=== PATIENT | male | born 1960 | race Caucasian/White ===

== ENCOUNTER 2022-10-08 11:02 | Emergency (ER) | payer BC ==
[2022-10-08 11:11] VITALS: BP 165/90; RESP 18; TEMP 98
[2022-10-08] MEDS ORDERED: SODIUM CHLORIDE 0.9% 500 ML 500 ML IV STA (11:29)
[2022-10-08 11:31] VITALS: PULSE 82
--- NOTE | 2022-10-08 11:35 | ED ---
General Adult HPI - General Chief complaint: Arrhythmia/Palpitations Stated complaint: fluttering in chest Time Seen by Provider: 10/08/22 11:22 Source: patient, family, RN notes reviewed, old records reviewed Mode of arrival: ambulatory Limitations: no limitations - History of Present Illness Initial comments: 62-year-old well-appearing male presents to the emergency room with complaints of palpitations or fluttering in his chest on and off for the past week. Patient states it happens at least once a day. Thought it may be related to his caffeine intake however he has stopped caffeine intake and continues to have palpitations at rest. He states he came in today because he was in spiritism and he felt the fluttering and his hands became sweaty. Denies any chest pain, cough or shortness of breath. No fevers or nausea vomiting or diarrhea. Patient does have a history of hypertension and does take metoprolol. -: week(s) (1) Location: chest Radiation: non-radiation Severity scale (1-10): 0 Associated Symptoms: other (sweaty palms today) Treatments Prior to Arrival: none - Related Data Allergies Allergy/AdvReac Type Severity Reaction Status Date / Time No Known Allergies Allergy Verified 10/08/22 11:11 Review of Systems ROS Statement: Those systems with pertinent positive or pertinent negative responses have been documented in the HPI. ROS Other: All systems not noted in ROS Statement are negative. Past Medical History Past Medical History: Hypertension History of Any Multi-Drug Resistant Organisms: None Reported Past Surgical History: No Surgical Hx Reported Past Psychological History: No Psychological Hx Reported Smoking Status: Never smoker Past Alcohol Use History: Occasional Past Drug Use History: None Reported General Exam Limitations: no limitations General appearance: alert, in no apparent distress Head exam: Present: atraumatic Eye exam: Absent: scleral icterus, conjunctival injection, periorbital swelling, periorbital tenderness Neck exam: Present: normal inspection, full ROM, other (No carotid bruit). Absent: tenderness, meningismus, lymphadenopathy Respiratory exam: Present: normal lung sounds bilaterally. Absent: respiratory distress, wheezes, rales, rhonchi, stridor, chest wall tenderness, accessory muscle use, decreased breath sounds Cardiovascular Exam: Present: regular rate GI/Abdominal exam: Present: soft. Absent: distended, tenderness, guarding, rigid Extremities exam: Present: normal inspection, full ROM, normal capillary refill. Absent: tenderness, pedal edema Back exam: Present: normal inspection. Absent: tenderness, rash noted Neurological exam: Present: alert, oriented X3 Psychiatric exam: Present: normal affect, normal mood Skin exam: Present: warm, dry, normal color. 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 No old EKG to compare Chest x-ray reviewed by me shows no areas of consolidation. Radiologist interpretation no acute cardiopulmonary process. CBC and electrolytes are unremarkable. Troponin negative at 0.012. Vital signs are stable. Patient has had no palpitations while in the emergency room. We did have a discussion regarding his caffeine intake which may be cause of palpitations. HEART score low. He was instructed to follow-up with his primary care doctor and cardiology for possible Holter monitor. Instructed to return to the emergency room with any new or concerning symptoms especially chest pain or difficulty in breathing. Pa marcus and family member are agreeable to this plan of care. Case was discussed with Dr. Mccormack - Lab Data Result diagrams: 10/08/22 11:38 10/08/22 12:25 Lab Results 10/08/22 10/08/22 10/08/22 Range/Units 11:38 11:56 12:25 WBC 8.7 (3.8-10.6) k/uL RBC 5.12 (4.30-5.90) m/uL Hgb 15.9 (13.0-17.5) gm/dL Hct 45.2 (39.0-53.0) % MCV 88.4 (80.0-100.0) fL MCH 31.0 (25.0-35.0) pg MCHC 35.1 (31.0-37.0) g/dL RDW 12.2 (11.5-15.5) % Plt Count 286 (150-450) k/uL MPV 7.6 Neutrophils % 79 % Lymphocytes % 12 % Monocytes % 6 % Eosinophils % 1 % Basophils % 0 % Neutrophils # 6.9 (1.3-7.7) k/uL Lymphocytes # 1.1 (1.0-4.8) k/uL Monocytes # 0.5 (0-1.0) k/uL Eosinophils # 0.1 (0-0.7) k/uL Basophils # 0.0 (0-0.2) k/uL PT 10.0 (9.0-12.0) sec INR 0.9 (<1.2) APTT 19.8 L (22.0-30.0) sec Sodium (137-145) mmol/L Potassium (3.5-5.1) mmol/L Chloride (98-107) mmol/L Carbon Dioxide (22-30) mmol/L Anion Gap mmol/L BUN (9-20) mg/dL Creatinine (0.66-1.25) mg/dL Est GFR (CKD-EPI)AfAm (>60 ml/min/1.73 sqM) Est GFR (CKD-EPI)NonAf (>60 ml/min/1.73 sqM) Glucose (74-99) mg/dL Calcium (8.4-10.2) mg/dL Magnesium (1.6-2.3) mg/dL Total Bilirubin (0.2-1.3) mg/dL AST (17-59) U/L ALT (4-49) U/L Alkaline Phosphatase (38-126) U/L Troponin I <0.012 (0.000-0.034) ng/mL Total Protein (6.3-8.2) g/dL Albumin (3.5-5.0) g/dL 10/08/22 Range/Units 12:25 WBC (3.8-10.6) k/uL RBC (4.30-5.90) m/uL Hgb (13.0-17.5) gm/dL Hct (39.0-53.0) % MCV (80.0-100.0) fL MCH (25.0-35.0) pg MCHC (31.0-37.0) g/dL RDW (11.5-15.5) % Plt Count (150-450) k/uL MPV Neutrophils % % Lymphocytes % % Monocytes % % Eosinophils % % Basophils % % Neutrophils # (1.3-7.7) k/uL Lymphocytes # (1.0-4.8) k/uL Monocytes # (0-1.0) k/uL Eosinophils # (0-0.7) k/uL Basophils # (0-0.2) k/uL PT (9.0-12.0) sec INR (<1.2) APTT (22.0-30.0) sec Sodium 140 (137-145) mmol/L Potassium 4.0 (3.5-5.1) mmol/L Chloride 111 H (98-107) mmol/L Carbon Dioxide 20 L (22-30) mmol/L Anion Gap 9 mmol/L BUN 11 (9-20) mg/dL Creatinine 0.79 (0.66-1.25) mg/dL Est GFR (CKD-EPI)AfAm >90 (>60 ml/min/1.73 sqM) Est GFR (CKD-EPI)NonAf >90 (>60 ml/min/1.73 sqM) Glucose 100 H (74-99) mg/dL Calcium 8.6 (8.4-10.2) mg/dL Magnesium 1.8 (1.6-2.3) mg/dL Total Bilirubin 0.8 (0.2-1.3) mg/dL AST 20 (17-59) U/L ALT 20 (4-49) U/L Alkaline Phosphatase 90 (38-126) U/L Troponin I (0.000-0.034) ng/mL Total Protein 7.1 (6.3-8.2) g/dL Albumin 4.3 (3.5-5.0) g/dL Disposition Clinical Impression: Palpitations Disposition: HOME SELF-CARE Condition: Good Instructions (If sedation given, give patient instructions): Heart Palpitations (ED) Additional Instructions: Please follow-up with your primary care doctor tomorrow. It may be necessary to have a playground monitor provided to monitor your heart rhythm. Return to the emergency room with any new or concerning symptoms. Is patient prescribed a controlled substance at d/c from ED?: No Referrals: David Bowie MD [Primary Care Provider] - 1-2 days Dakota Wallace MD [STAFF PHYSICIAN] - 1-2 days Time of Disposition: 13:00
[2022-10-08 11:47] LABS: Basophils % (A) 0 %; Eosinophils # (A) 0.1 k/uL (0-0.7); Eosinophils % (A) 1 %; HCT 45.2 % (39.0-53.0); HGB 15.9 gm/dL (13.0-17.5); Lymphocytes # (A) 1.1 k/uL (1.0-4.8); Lymphocytes % (A) 12 %; MCHC 35.1 g/dL (31.0-37.0); MCV 88.4 fL (80.0-100.0); Mean Platelet Volume 7.6; Monocytes # (A) 0.5 k/uL (0-1.0); Monocytes % (A) 6 %; Neutrophils # (A) 6.9 k/uL (1.3-7.7); Neutrophils % (A) 79 %; Platelet Count 286 k/uL (150-450); RBC 5.12 m/uL (4.30-5.90); RDW 12.2 % (11.5-15.5); WBC 8.7 k/uL (3.8-10.6)
--- NOTE | 2022-10-08 12:10 | XR ---
EXAMINATION TYPE: XR chest 2V DATE OF EXAM: 10/08/2022 COMPARISON: None HISTORY: 62-year-old male dysrhythmia, heart flutter TECHNIQUE: PA and lateral views FINDINGS: The cardiomediastinal silhouette, aorta, and pulmonary vasculature are within normal limits. Strandy atelectasis in the lower lungs. Otherwise, lungs and pleural spaces are clear. IMPRESSION: No acute cardiopulmonary process.
[2022-10-08 12:27] LABS: INR 0.9 (<1.2)
[2022-10-08 12:29] LABS: Partial Thromboplastin Time 19.8 sec (22.0-30.0)
[2022-10-08 12:44] LABS: ALT 20 U/L (4-49); AST 20 U/L (17-59); African American GFR (CKD) >90 (>60 ml/min/1.73 sqM); Albumin 4.3 g/dL (3.5-5.0); Alkaline Phosphatase 90 U/L (38-126); Anion Gap 9 mmol/L; Blood Urea Nitrogen 11 mg/dL (9-20); Calcium 8.6 mg/dL (8.4-10.2); Carbon Dioxide 20 mmol/L (22-30); Chloride 111 mmol/L (98-107); Glucose 100 mg/dL (74-99); Magnesium 1.8 mg/dL (1.6-2.3); Non-African American GFR(CKD) >90 (>60 ml/min/1.73 sqM); Sodium 140 mmol/L (137-145); Total Bilirubin 0.8 mg/dL (0.2-1.3); Total Protein 7.1 g/dL (6.3-8.2)
== END 2022-10-08 13:18 | disposition home or self-care (01) ==
LOC: EC 11:02
DX: R00.2 Palpitations (principal); I10 Essential (primary) hypertension
CPT/HCPCS: 36415; 71046; 80053; 83735; 84484; 85025; 85610; 85730; 93005; 96360; 99285

== ENCOUNTER → 2023-03-21 | Outpatient (CLI) | payer BC ==
--- NOTE | 2023-03-21 12:00 | CTL ---
EXAMINATION TYPE: CT Low Dose Lung DATE OF EXAM ORDERED: 03/21/2023 HISTORY: . Lung cancer screening CT DLP: mGycm CT CTD: mGy Automated exposure control for dose reduction was used. SCREENING VISIT: COMPARISON: None TECHNIQUE: Low dose computed tomography scan was performed through the chest at 1 mm thick sections a nd reconstructed images in multiple planes at 1 mm and [address] DIAGNOSTIC QUALITY: Satisfactory FINDINGS: There are subsegmental changes involving both lungs greater on the right most scarring or atelectasis . No focal pneumonia or pleural effusion. There is no pneumothorax. On axial image 162 there is a 3 mm nodule in the anterior segment of the right upper lobe. On axial image 179 2 mm nodule subpleural right upper lobe On axial image 187 there is a 2 mm nodule anterior segment right upper lobe On axial image 223 there is a nodule measuring 4 mm left lower lobe. On axial image 164 there is a 3 mm subpleural nodule right lower lobe. Heart size is normal. There is atherosclerotic change of the aorta. There is no evidence of significa nt coronary artery calcification. No pericardial effusion. Within the liver there is a 3.7 cm posterior segment right lobe liver lesion measuring 5 [place] u nits most likely basis, cyst IMPRESSION: 1. Multiple 5 mm less pulmonary nodules likely a benign basis. 2. Right hepatic lesion most likely on the basis of simple cysts consider follow-up ultrasound for co nfirmation. CT LUNG RAD AND CT CHEST RECOMMENDATION: Lung-Rad 2 Benign Appearance or Behavior: Continue annual sc reening with LDC in 12 months.
== END | disposition home or self-care (01) ==
LOC: RADCTMAIN 11:01
PROVIDERS: ATTEND Family Medicine
DX: Z12.2 Encounter for screening for malignant neoplasm of respiratory organs (principal); K76.9 Liver disease, unspecified; R91.8 Other nonspecific abnormal finding of lung field; Z87.891 Personal history of nicotine dependence
CPT/HCPCS: 71271

== ENCOUNTER → 2023-04-23 | Outpatient (CLI) | payer BC ==
--- NOTE | 2023-04-23 07:52 | US ---
EXAMINATION TYPE: US liver DATE OF EXAM: 04/23/2023 COMPARISON: CT low-dose lung cancer screening 03/21/2023 CLINICAL INDICATION: Male, 62 years old with history of Q44.6 CYSTIC DISEASE OF LIVER; cyst seen on C T TECHNIQUE: Multiple sonographic images of the right upper quadrant are obtained. FINDINGS: EXAM MEASUREMENTS: Liver Length: 17.0 cm Gallbladder Wall: 0.3 cm CBD: 0.6 cm Right Kidney: 11.4 x 5.7 x 5.8 cm Pancreas: wnl Liver: 2 cystic areas seen, largest 4.3 x 3.9 x 3.7cm in posterior right lobe Gallbladder: wnl Evidence for sonographic Aldana's sign: no CBD: wnl Right Kidney: wnl The visualized portions of the pancreas are unremarkable. There are 2 simple appearing cysts within t he liver with largest measuring up to 4.3 cm the right hepatic lobe. Gallbladder is unremarkable with out evidence of wall thickening, shadowing stones, or pericholecystic fluid. Per client relations specialist, negativ e sonographic Aldana sign. Common bile duct is within normal limits. The right kidney is unremarkable without evidence of hydronephrosis, shadowing calculi, or solid mass. IMPRESSION: 1. No acute process. 2. There are 2 simple appearing cysts within the liver with largest measuring up to 4.3 cm [address] to [address].
== END | disposition home or self-care (01) ==
LOC: RADUSWWP 06:50
PROVIDERS: ATTEND Family Medicine
DX: Q44.6 Cystic disease of liver (principal); K76.89 Other specified diseases of liver
CPT/HCPCS: 76705

== ENCOUNTER → 2024-03-21 | Outpatient (CLI) | payer MEDICARE, BC ==
--- NOTE | 2024-03-21 12:32 | CTL ---
EXAMINATION TYPE: CT Low Dose Lung DATE OF EXAM: 03/21/2024 9:43 AM CLINICAL INDICATION:Male, 63 years old with history of Z87.891 PERSONAL HX NICOTINE DEPENENCE; person al hx of nicotine dependence 1ppd X 30years not current smoker , history of tobacco use. COMPARISON: 03/21/2023. TECHNIQUE: Multiple axial non-contrast scans were obtained from approximately the lung apices through the upper abdomen. Coronal and sagittal reformatted images were obtained. Low dose technique was uti lized. CT DLP: 103 mGycm, Automated exposure control for dose reduction was used. CT Contrast: Contrast used: None Oral contrast used: None FINDINGS: ======== Lack of intravenous contrast and low dose technique limits the evaluation of the vascular and soft ti ssue structures. LUNGS: No evidence of pulmonary fibrosis. No evidence of focal consolidation, pneumothorax or pleural effusion. Nodules: RUL: None. RML: 3 mm series 9 image 33. RLL: None. FREDY: None. LLL: 3 mm series 9 image 44, 3 mm image 41 AIRWAY: Patent and unremarkable. HEART: Size within normal limits. MEDIASTINUM: No gross evidence of adenopathy. VASCULATURE: No aortic aneurysm. MUSCULOSKELETAL: No acute osseous abnormalities SOFT TISSUES/LYMPH NODES: Unremarkable. LOWER NECK: No significant findings. UPPER ABDOMEN: Right hepatic lobe cyst. IMPRESSION: 1. No clinically significant pulmonary nodules. 2. Mild emphysema. CT LUNG RAD AND CT CHEST RECOMMENDATION: Lung-Rad 2 Benign Appearance or Behavior: Continue annual sc reening with LDCT in 12 months. S Modifier (other clinically significant findings): None Recommend smoking cessation (if current smoker), or continuation of smoking cessation (if prior smoke r). Annual screening for lung cancer with low-dose computed tomography is recommended in adults ages 55 to 77 years who have a 30 pack-year smoking history and currently smoke or have quit within the pa st 15 years. Screening should be discontinued once a person has not smoked for 15 years or develops a health problem that substantially limits life expectancy or the ability or willingness to have curat taylor lung surgery. Lung rads 2021 [email or web address]
== END | disposition home or self-care (01) ==
LOC: RADCTMAIN 09:09
PROVIDERS: ATTEND Family Medicine
DX: Z12.2 Encounter for screening for malignant neoplasm of respiratory organs (principal); J43.9 Emphysema, unspecified; Z87.891 Personal history of nicotine dependence
CPT/HCPCS: 71271

== ENCOUNTER 2025-03-19 19:27 | Emergency (ER) | payer MEDICARE, BC ==
[2025-03-19 19:51] VITALS: RESP 18; TEMP 97.4
[2025-03-19 20:12] LABS: Basophils # (A) 0.04 10*3/uL (0.00-0.10); Basophils % (A) 0.5 %; Eosinophils % (A) 2.7 %; HCT 49.6 % (39.6-50.0); HGB 17.2 g/dL (13.0-17.0); Lymphocytes # (A) 0.78 10*3/uL (0.90-5.00); Lymphocytes % (A) 10.4 %; MCH 30.4 pg (27.0-32.0); MCHC 34.7 g/dL (32.0-37.0); MCV 87.8 fL (80.0-97.0); Mean Platelet Volume 8.8 fL (9.5-12.2); Monocytes # (A) 0.15 10*3/uL (0.20-1.00); Neutrophils # (A) 6.32 10*3/uL (1.80-7.70); Platelet Count 283 10*3/uL (140-440); RBC 5.65 10*6/uL (4.40-5.60); RDW 12.8 % (11.5-14.5); WBC 7.52 10*3/uL (4.50-10.00)
[2025-03-19 20:30] LABS: ALT 133 U/L (4-49); AST 214 U/L (17-59); African American GFR (CKD) 80 (>60 ml/min/1.73 sqM); Albumin 5.1 g/dL (3.5-5.0); Alkaline Phosphatase 111 U/L (38-126); Amylase 67 U/L (30-110); Anion Gap 15 mmol/L; Blood Urea Nitrogen 14 mg/dL (9-20); Calcium 10.4 mg/dL (8.4-10.2); Carbon Dioxide 25 mmol/L (22-30); Chloride 100 mmol/L (98-107); Glucose 125 mg/dL (74-99); Lipase 187 U/L (23-300); Non-African American GFR(CKD) 69 (>60 ml/min/1.73 sqM); Potassium 4.1 mmol/L (3.5-5.1); Sodium 140 mmol/L (137-145); Total Bilirubin 2.3 mg/dL (0.2-1.3); Total Protein 8.8 g/dL (6.3-8.2)
--- NOTE | 2025-03-19 20:58 | ED ---
General Adult HPI - General Source: patient, RN notes reviewed Mode of arrival: ambulatory Limitations: no limitations <Deysi Barton - Last Filed: 03/19/25 23:48> <Jamie Arciniega - Last Filed: 03/20/25 02:44> - General Chief complaint: Abdominal Pain Stated complaint: abd and back pain Time Seen by Provider: 03/19/25 20:44 - History of Present Illness Initial comments: 64-year-old male with history of hypertension, hyperlipidemia and acid reflux presents emergency department for complaints of center abdominal pain with radiation to his back. Patient states the pain started few hours prior to arrival that was extremely severe. On the drive to the emergency department patient became nauseous and had a few episodes of emesis. Currently he states that the pain has subsided and now is rated as a 2 to a 3 out of 10. He denies chest pain, difficulty breathing, heart palpitations, dysuria, hematuria, urinary frequency or urgency, fevers, chills. (Deysi Barton) - Related Data Allergies Allergy/AdvReac Type Severity Reaction Status Date / Time No Known Allergies Allergy Verified 03/19/25 19:48 Review of Systems ROS Other: All systems not noted in ROS Statement are negative. <Deysi Barton - Last Filed: 03/19/25 23:48> ROS Other: All systems not noted in ROS Statement are negative. <Jamie Arciniega - Last Filed: 03/20/25 02:44> ROS Statement: Those systems with pertinent positive or pertinent negative responses have been documented in the HPI. Past Medical History Past Medical History: Hypertension History of Any Multi-Drug Resistant Organisms: None Reported Past Surgical History: No Surgical Hx Reported Past Psychological History: No Psychological Hx Reported Smoking Status: Never smoker Past Alcohol Use History: Occasional Past Drug Use History: None Reported <Deysi Barton - Last Filed: 03/19/25 23:48> General Exam Limitations: no limitations General appearance: alert, in no apparent distress Neck exam: Present: normal inspection. Absent: tenderness, meningismus, lymphadenopathy Respiratory exam: Present: normal lung sounds bilaterally. Absent: respiratory distress, wheezes, rales, rhonchi, stridor Cardiovascular Exam: Present: regular rate, normal rhythm, normal heart sounds. Absent: systolic murmur, diastolic murmur, rubs, gallop, clicks GI/Abdominal exam: Present: soft, tenderness (mid abdomen), normal bowel sounds. Absent: distended, guarding, rebound, rigid Extremities exam: Present: normal inspection, full ROM, normal capillary refill. Absent: tenderness, pedal edema, joint swelling, calf tenderness Back exam: Present: normal inspection, tenderness (mid back). Absent: CVA tenderness (R), CVA tenderness (L) Neurological exam: Present: alert, oriented X3, CN II-XII intact <Deysi Barton - Last Filed: 03/19/25 23:48> Course Vital Signs 03/19/25 03/19/25 19:48 21:15 Temperature 97.4 F L Pulse Rate 95 105 H Respiratory 18 18 Rate Blood Pressure 150/91 O2 Sat by Pulse 95 96 Oximetry Medical Decision Making - Lab Data Result diagrams: 03/19/25 20:07 03/19/25 20:07 <Deysi Barton - Last Filed: 03/19/25 23:48> - Lab Data Result diagrams: 03/19/25 20:07 03/19/25 20:07 <Jamie Arciniega - Last Filed: 03/20/25 02:44> - Medical Decision Making Was pt. sent in by a medical professional or institution (Dr. PA, DESIGN ENGINEERING SPECIALIST, urgent care, hospital, or usp...) When possible be specific @ -[No] Did you speak to anyone other than the patient for history (EMS, parent, family, police, friend...)? What history was obtained from this source @ -[No] Did you review nursing and triage notes (agree or disagree)? Why? @ -[I reviewed and agree with nursing and triage notes] Were old charts reviewed (outside hosp., previous admission, EMS record, old EKG, old radiological studies, urgent care reports/EKG's, usp records)? Report findings @ -[No old charts were reviewed] Differential Diagnosis (chest pain, altered mental status, abdominal pain women, abdominal pain men, vaginal bleeding, weakness, fever, dyspnea, syncope, headache, dizziness, GI bleed, back pain, seizure, CVA, palpatations, mental health, musculoskeletal)? @ -Differential Abdominal Pain Men: Appendicitis, cholecystitis, diverticulosis, ischemic bowel, pancreatitis, hepatitis, UTI, gastroenteritis, AAA, incarcerated hernia, bowel obstruction, constipation, inflammatory bowel, hepatitis, peptic ulcer disease, splenic infarction, perforated viscus, testicular torsion, this is not meant to be an all-inclusive list EKG interpreted by me (3pts min.). @ -Completed at 2000 sinus rhythm with a noted first-degree AV block, ventricular rate 92, TX interval 217, QRS 104, QT 356, QTc 406. X-rays interpreted by me (1pt min.). @ -[None done] CT interpreted by me (1pt min.). @ -[None done] U/S interpreted by me (1pt. min.). @ -[None done] What testing was considered but not performed or refused? (CT, X-rays, U/S, labs)? Why? @ -[None] What meds were considered but not given or refused? Why? @ -[None] Did you discuss the management of the patient with other professionals (professionals i.e. , PA, DESIGN ENGINEERING SPECIALIST, lab, RT, psych nurse, social insurance adviser, childhood teacher, teacher, mortgage loan officer, returned case inspector)? Give summary @ -[No] Was smoking cessation discussed for >3mins.? @ -[No] Was critical care preformed (if so, how long)? @ -[No] Were there social determinants of health that impacted care today? How? (Homelessness, low income, unemployed, alcoholism, drug addiction, transportation, low edu. Level, literacy, decrease access to med. care, fpc, re hab)? @ -[No] Was there de-escalation of care discussed even if they declined (Discuss DNR or withdrawal of care, Hospice)? DNR status @ -[No] What co-morbidities impacted this encounter? (DM, HTN, Smoking, COPD, CAD, Cancer, CVA, ARF, Chemo, Hep., AIDS, mental health diagnosis, sleep apnea, morbid obesity)? @ -[None] Was patient admitted / discharged? Hospital course, mention meds given and route , prescriptions, significant lab abnormalities, going to OR and other pertinent info. @ -64-year-old male presents emergency room with complaints of abdominal pain with radiation to his back. Pain is mildly reproducible on examination. Patient dates that pain is improved since he has been in the emergency department currently rated as a 3 out of 10. He is offered morphine however was declined stating that he would like Tylenol instead as his pain is not as severe as it was. CBC is unremarkable. CMP reveals transaminitis with an AST of 214, ALT of 133. Elevated bilirubin of 2.3. Urinalysis no signs of infection. Undiagnosed new problem with uncertain prognosis? @ -[No] Drug Therapy requiring intensive monitoring for toxicity (Heparin, Nitro, Insulin, Cardizem)? @ -[No] Were any procedures done? @ -[No] Diagnosis/symptom? @ -[default] Acute, or Chronic, or Acute on Chronic? @ -[default] Uncomplicated (without systemic symptoms) or Complicated (systemic symptoms)? @ -[default] Side effects of treatment? @ -[No] Exacerbation, Progression, or Severe Exacerbation? @ -[No] Poses a threat to life or bodily function? How? (Chest pain, [place], [place], pneumonia, PE, COPD, DKA, ARF, appy, cholecystitis, CVA, Diverticulitis, Homicidal, Suicidal, threat to staff... and all critical care pts) @ -[No] (Deysi Barton) - Lab Data Lab Results 03/19/25 03/19/25 03/19/25 Range/Units 20:07 20:07 21:31 WBC 7.52 (4.50-10.00) 10*3/uL RBC 5.65 H (4.40-5.60) 10*6/uL Hgb 17.2 H (13.0-17.0) g/dL Hct 49.6 (39.6-50.0) % MCV 87.8 (80.0-97.0) fL MCH 30.4 (27.0-32.0) pg MCHC 34.7 (32.0-37.0) g/dL Plt Count 283 (140-440) 10*3/uL MPV 8.8 L (9.5-12.2) fL Immature Gran % (Auto) 0.4 % Neutrophils % 84.0 % Lymphocytes % 10.4 % Monocytes % 2.0 % Eosinophils % 2.7 % Basophils % 0.5 % Immature Gran # 0.03 (0.00-0.04) 10*3/uL Neutrophils # 6.32 (1.80-7.70) 10*3/uL Lymphocytes # 0.78 L (0.90-5.00) 10*3/uL Monocytes # 0.15 L (0.20-1.00) 10*3/uL Eosinophils # 0.20 (0.04-0.35) 10*3/uL Basophils # 0.04 (0.00-0.10) 10*3/uL Sodium 140 (137-145) mmol/L Potassium 4.1 (3.5-5.1) mmol/L Chloride 100 (98-107) mmol/L Carbon Dioxide 25 (22-30) mmol/L Anion Gap 15 mmol/L BUN 14 (9-20) mg/dL Creatinine 1.11 (0.66-1.25) mg/dL Est GFR (CKD-EPI)AfAm 80 (>60 ml/min/1.73 sqM) Est GFR (CKD-EPI)NonAf 69 (>60 ml/min/1.73 sqM) Glucose 125 H (74-99) mg/dL Calcium 10.4 H (8.4-10.2) mg/dL Total Bilirubin 2.3 H (0.2-1.3) mg/dL AST 214 H (17-59) U/L ALT 133 H (4-49) U/L Alkaline Phosphatase 111 (38-126) U/L Total Protein 8.8 H (6.3-8.2) g/dL Albumin 5.1 H (3.5-5.0) g/dL Amylase 67 (30-110) U/L Lipase 187 (23-300) U/L Urine Color Yellow Urine Appearance Clear (Clear) Urine pH 5.5 (5.0-8.0) Ur Specific [place] 1.014 (1.001-1.035) Urine Protein Negative (Negative) Urine Glucose (UA) Negative (Negative) Urine Ketones Negative (Negative) Urine Blood Negative (Negative) Urine Nitrite Negative (Negative) Urine Bilirubin Negative (Negative) Urine Urobilinogen 2.0 (<2.0) mg/dL Ur Leukocyte Esterase Negative (Negative) Disposition <Deysi Barton - Last Filed: 03/19/25 23:48> Is patient prescribed a controlled substance at d/c from ED?: No <Jamie Arciniega - Last Filed: 03/20/25 02:44> Clinical Impression: Abdominal pain Disposition: HOME SELF-CARE Condition: Good Instructions (If sedation given, give patient instructions): Abdominal Pain (ED) Additional Instructions: Your transaminase levels were mildly elevated today. You should follow-up and have them rechecked in approximately 4 to 5 days to ensure that they are not going up. In the meantime avoid using alcohol or Tylenol which can affect the liver. Return here if there is any worsening in your condition or any symptoms. Referrals: None,Stated [REFERRING] - 1-2 days
[2025-03-19] MEDS: MORPHINE SULFATE 4 MG/ML SYRINGE IVP STA (21:32)
[2025-03-19] MEDS: ACETAMINOPHEN TAB 325 MG TAB PO STA (21:33)
[2025-03-19 21:38] LABS: Appearance,Urine Clear (Clear); Bilirubin,Urine Negative (Negative); Blood,Urine Negative (Negative); Color,Urine Yellow; Glucose,Urine (UA) Negative (Negative); Ketones,Urine Negative (Negative); Leukocyte Esterase,Urine Negative (Negative); Nitrite,Urine Negative (Negative); PH, Urine 5.5 (5.0-8.0); Protein,Urine Negative (Negative); Specific Gravity,Urine 1.014 (1.001-1.035)
--- NOTE | 2025-03-20 02:05 | CT ---
EXAM: CT Abdomen and Pelvis With Intravenous Contrast CLINICAL HISTORY: Mid abdominal pain w/ radiation into back TECHNIQUE: Axial computed tomography images of the abdomen and pelvis with intravenous contrast. CTDI is 27.97 mGy and DLP is 1505.8 mGy-cm. This CT exam was performed using one or more of the following dose reduction techniques: automated exposure control, adjustment of the mA and/or kV according to patient size, and/or use of iterative reconstruction technique. COMPARISON: Ultrasound liver 04/23/2023. FINDINGS: Lung bases: Right lower lobe platelike atelectasis versus scarring. ABDOMEN: Liver: Multiple small subcentimeter hypodensity scattered liver too small to characterize likely cysts. Gallbladder and bile ducts: Small calcified gallstones. No ductal dilation. Pancreas: No evidence for pancreatitis. No mass. No ductal dilation. Spleen: Unremarkable. No splenomegaly. Adrenals: Unremarkable. No mass. Kidneys and ureters: No obstructive uropathy. No obstructing renal or ureteral calculi. No hydronephrosis or hydroureter. Stomach and bowel: No obstruction or ileus. Probable duodenal diverticulum adjacent to the pancreatic head. Multiple scattered colonic diverticuli, greatest in the sigmoid colon, without evidence for acute diverticulitis. PELVIS: Appendix: No findings to suggest acute appendicitis. Bladder: Partially contracted. No mass. Reproductive: Unremarkable as visualized. ABDOMEN and PELVIS: Intraperitoneal space: No free air. No free fluid. Bones/joints: No acute fracture. Degenerative changes of the spine. Soft tissues: Unremarkable. Vasculature: Atherosclerotic vascular calcifications. No abdominal aortic aneurysm or dissection. Lymph nodes: Unremarkable. No enlarged lymph nodes. IMPRESSION: Multiple scattered colonic diverticuli, greatest in the sigmoid colon, without evidence for acute diverticulitis. Cholelithiasis. No evidence for acute cholecystitis or biliary obstruction. No evidence for acute pancreatitis. No obstructive uropathy. Probable small liver cysts, too small to accurately characterize. No aortic aneurysm or dissection.
[2025-03-20 03:03] VITALS: BP 142/86; PULSE 99
== END 2025-03-20 03:03 | disposition home or self-care (01) ==
LOC: EC 19:27
DX: R10.9 Unspecified abdominal pain (principal); E78.5 Hyperlipidemia, unspecified; I10 Essential (primary) hypertension; K21.9 Gastro-esophageal reflux disease without esophagitis
CPT/HCPCS: 36415; 93005; 80053; 82150; 83690; 85025; 81003; 74177; 99284; Q9967

== ENCOUNTER → 2025-03-27 | Outpatient (CLI) | payer MEDICARE, BC ==
--- NOTE | 2025-03-28 11:27 | CTL ---
EXAMINATION TYPE: CT Low Dose Lung DATE OF EXAM: 03/27/2025 3:53 PM COMPARISON: 03/21/2024. CLINICAL INDICATION: Male, 64 years old with history of Z12.2 ENCNTR SCREEN FO Z87.891 NICOTINE DEPEN DENCE; F/u lung screening., history of tobacco use. TECHNIQUE: Multiple axial non-contrast scans were obtained from approximately the lung apices through the upper abdomen. Coronal and sagittal reformatted images were obtained. Low dose technique was uti lized. MIP were created on a separate workstation and submitted for review. CT DLP: 143.5 mGycm, Automated exposure control for dose reduction was used. CT Contrast: Contrast used: None Oral contrast used: None FINDINGS: Lack of intravenous contrast and low dose technique limits the evaluation of the vascular and soft ti ssue structures. LUNGS: No evidence of pulmonary fibrosis. No evidence of focal consolidation, pneumothorax or pleural effusion. Centrilobular emphysema changes. Nodules: RUL: None. RML: 3 mm Series 7 image 39, stable. RLL: None. FREDY: 4 mm series 5 image 40, stable.. LLL: 5 mm series 5 image 48, stable.. AIRWAY: Patent and unremarkable. HEART: Size within normal limits. No significant coronary artery calcifications. MEDIASTINUM: No gross evidence of adenopathy. VASCULATURE: No aortic aneurysm. MUSCULOSKELETAL: No acute osseous abnormalities SOFT TISSUES/LYMPH NODES: Unremarkable. LOWER NECK: No significant findings. UPPER ABDOMEN: No significant findings. Probable hepatic which are subcentimeter. No focal. IMPRESSION: 1. No clinically significant pulmonary nodules. 2. Mild emphysema. CT LUNG RAD AND CT CHEST RECOMMENDATION: Lung-Rad 2 Benign Appearance or Behavior: Continue annual sc reening with LDCT in 12 months. S Modifier (other clinically significant findings): None Recommend smoking cessation (if current smoker), or continuation of smoking cessation (if prior smoke r). Annual screening for lung cancer with low-dose computed tomography is recommended in adults ages 55 to 77 years who have a 30 pack-year smoking history and currently smoke or have quit within the pa st 15 years. Screening should be discontinued once a person has not smoked for 15 years or develops a health problem that substantially limits life expectancy or the ability or willingness to have curat taylor lung surgery. Lung rads 2021 [email or web address] [facility], , 03/28/2025 11:25 AM
== END | disposition home or self-care (01) ==
LOC: RADCTMAIN 14:14
PROVIDERS: ATTEND Family Medicine
DX: Z12.2 Encounter for screening for malignant neoplasm of respiratory organs (principal); J43.2 Centrilobular emphysema; Z87.891 Personal history of nicotine dependence
CPT/HCPCS: 71271

== ENCOUNTER → 2025-05-10 | Outpatient (CLI) | payer MEDICARE, BC ==
--- NOTE | 2025-05-10 11:07 | MR ---
MRCP HISTORY: Cholelithiasis. COMPARISON: None TECHNIQUE: MRCP was performed according to the department protocol. Multiecho planar images of the ga llbladder biliary tree and upper abdomen were obtained. FINDINGS: There are a few small gallstones. There is a filling defect within the distal common bile duct just p roximal to the ampulla consistent with a common bile duct stone. There is no extrahepatic or intrahep atic biliary ductal dilatation. There is no focal mass within the liver, pancreas or spleen. There is no organomegaly. There are a fe w tiny hepatic cysts. There is no solid renal mass or nephrosis. The caliber of the abdominal aorta is normal. There is no retroperitoneal Bowel loops are normal in caliber and there is no obstruction. There is no free intraperitoneal fluid . IMPRESSION: 1. Mild cholelithiasis. 2. Choledocholithiasis with stone in distal common bile duct but no biliary ductal dilatation. [facility], , 05/10/2025 11:05 AM
== END | disposition home or self-care (01) ==
LOC: RADMRIMAIN 09:44
PROVIDERS: ATTEND Surgery
DX: K80.70 Calculus of gallbladder and bile duct without cholecystitis without obstruction (principal)
CPT/HCPCS: 74181

== ENCOUNTER 2025-05-29 09:00 | Day surgery (SDC) | payer MEDICARE, BC ==
[2025-05-27 15:17] VITALS: BMI 29.7
[2025-05-29] MEDS: IV FLUID CONTINUATION 1,000 ML IV ONE (09:14)
[2025-05-29 09:32] VITALS: TEMP 97
[2025-05-29] MEDS: LACTATED RINGERS 1,000 ML IV SCH (09:33)
[2025-05-29] MEDS: LEVOFLOXACIN 500MG-D5W PMX 500 MG in DEXTROSE/WATER 1 100ML.BAG IVPB PRN (09:34)
[2025-05-29] MEDS: INDOMETHACIN 100 MG SUPPOSITORY RECTAL PRN (09:36)
[2025-05-29] MEDS ORDERED: PROPOFOL 10 MG/ML 20 ML VIAL IV ONE (09:50)
[2025-05-29] MEDS ORDERED: KETAMINE HCL IN 0.9 % NACL 50 MG/5 ML SYRINGE ONE (09:50)
[2025-05-29] MEDS ORDERED: MIDAZOLAM 2 MG/2 ML VIAL ONE (09:50)
[2025-05-29] MEDS ORDERED: GLYCOPYRROLATE 0.2 MG/ML 2 ML VIAL ONE (09:50)
[2025-05-29 09:51] LABS: HCT 43.6 % (39.6-50.0); HGB 14.8 g/dL (13.0-17.0); MCH 29.9 pg (27.0-32.0); MCHC 33.9 g/dL (32.0-37.0); MCV 88.1 fL (80.0-97.0); Platelet Count 265 10*3/uL (140-440); RBC 4.95 10*6/uL (4.40-5.60); RDW 12.6 % (11.5-14.5); WBC 4.86 10*3/uL (4.50-10.00)
[2025-05-29 10:06] LABS: ALT 20 U/L (4-49); AST 21 U/L (17-59); African American GFR (CKD) >90 (>60 ml/min/1.73 sqM); Albumin 4.5 g/dL (3.5-5.0); Alkaline Phosphatase 95 U/L (38-126); Anion Gap 10 mmol/L; Blood Urea Nitrogen 8 mg/dL (9-20); Calcium 10.0 mg/dL (8.4-10.2); Carbon Dioxide 25 mmol/L (22-30); Chloride 106 mmol/L (98-107); Glucose 108 mg/dL (74-99); Non-African American GFR(CKD) >90 (>60 ml/min/1.73 sqM); Potassium 4.6 mmol/L (3.5-5.1); Sodium 141 mmol/L (137-145); Total Protein 7.6 g/dL (6.3-8.2)
[2025-05-29 10:34] LABS: INR 1.0 (<1.2)
--- NOTE | 2025-05-29 10:36 | P.PCN ---
Date of Procedure: 05/29/25 Procedure(s) Performed: Brief history: Patient is a 64 year-old pleasant white male scheduled for an ERCP as part of evaluation of abdominal pain and elevated serum transaminases for the last 2 months duration. He had several episodes and during one of the episodes the second 2024 he went to the emergency room. He was noted to have a bilirubin of 2.3 with AST of 234 and ALT of 154. He subsequently saw Dr. Marsh and had CT of the abdomen pelvis done that showed gallstones. Subsequently he also had MRCP done that showed distal common bile duct stone. And scheduled for ERCP today. Procedure performed: Attempted ERCP Preoperative diagnoses: Choledocholithiasis noted on MRCP IV sedation per anesthesia: Procedure: After informed consent was obtained from the patient and after the risks benefits and complications including bleeding perforation and pancreatitis explained in detail the patient was brought into the endoscopy unit. The patient was placed in prone position and IV conscious sedation was administered by anesthesia under continuous monitoring. The Olympus side-viewing duoden oscope was then inserted into the mouth and esophagus intubated without any difficulty. The scope was gradually advanced into the stomach and duodenum. There was a large periumbilical diverticulum identified. Despite multiple attempts I was not able to identify the ampullary orifice. The patient's position was changed and despite trying for 30 minutes I could not identify the ampullary orifice and hence cannulation could not be performed. The procedure was terminated and the patient tolerated the procedure well. Impression: Large periampullary diverticulum Unable to identify the ampullary orifice Recommendations: The findings of this examination were discussed with the patient as well as a family. He will be referred to [facility], advanced endoscopy team on outpatient basis for ERCP.
[2025-05-29 10:44] VITALS: RESP 16
[2025-05-29 10:57] LABS: Prothrombin Time 10.9 sec (10.0-12.5)
--- NOTE | 2025-05-29 11:14 | FL ---
EXAMINATION TYPE: FL ERCP Intraoperative/procedural fluoroscopic services were provided. CLINICAL INDICATION:Male, 64 years old with history of CALCULUS OF BILE DUCT; , [facility] FINDINGS: Fluoroscopic imaging demonstrating ERCP for choledocholithiasis. No radiographic evidence for complic ation. Total fluoroscopy time is 6 seconds. DAP: 0.15929 Gycm2 Please see the operative/procedural note for further details. [facility], , 05/29/2025 11:12 AM
[2025-05-29 11:15] VITALS: BP 131/87; PULSE 59
== END 2025-05-29 11:31 | disposition home or self-care (01) ==
LOC: ORWHC2ENDO 09:00
PROVIDERS: ATTEND Internal Medicine Gastroenterology
DX: K57.10 Diverticulosis of small intestine without perforation or abscess without bleeding (principal); I10 Essential (primary) hypertension; E78.5 Hyperlipidemia, unspecified; F12.90 Cannabis use, unspecified, uncomplicated; Z79.899 Other long term (current) drug therapy
CPT/HCPCS: 80053; 85027; 85610; 74330; 43260; J2250; J1956; J2704; J1596